=== PATIENT | female | born 1940 | race Caucasian/White ===

== ENCOUNTER 2016-06-24 21:17 | Emergency (ER) | payer OTHER ==
[2016-06-24 21:33] VITALS: BP 160/83; PULSE 76; TEMP 98.1; BMI 23.2
--- NOTE | 2016-06-24 21:35 | PDOC ---
History of Present Illness - General History Source: Patient Exam Limitations: No Limitations - History of Present Illness Initial Comments: 06/24/16 21:46 The patient is a 76 year old female with a significant past medical history of HTN, hypercholesterolemia who presents to the Emergency Department with a head injury tonight. She reports that she tripped and fell and hit her head. She denies LOC. She reports the fall was mechanical. She reports associated neck pain, but no headache. She denies chest pain, shortness of breath, dizziness. She denies fever, chills, nausea, vomiting, diarrhea, and constipation. PAST MEDICAL HISTORY: HTN, hypercholesterolemia PAST SURGICAL HISTORY: open heart surgery FAMILY HISTORY: no pertinent history SOCIAL HISTORY: Pt lives with family and is employed. MEDICATIONS: reviewed ALLERGIES: As per nursing notes Review of Systems: General: No fevers or chills, no weakness, no weight loss HEENT: No change in vision. No sore throat,. No ear pain CardioVascular: No chest pain or shortness of breath Respiratory: No cough, or wheezing. Gastrointestinal: no nausea, vomiting, diarrhea or constipation, No rectal bleeding Genitourinary: No dysuria, hematuria, or frequency Musculoskeletal: + neck pain. No joint or muscle pain or swelling Neurologic: + head injury. No headache, vertigo, dizziness or loss of consciousness Psychiatric: No depression Skin: No rashes or easy bruising Endocrine: No increased thirst or abnormal weight change Allergic: No skin or latex allergy All other systems reviewed and normal Physical Exam: GENERAL: The patient is awake, alert, and fully oriented, in no acute distress. HEAD: Contusion on left side of her head with associated small abrasion. No bleeding. No cervical spine tenderness. EYES: Pupils equal, round and reactive to light, extraocular movements intact, sclera anicteric, conjunctiva clear. EXTREMITIES: Normal range of motion, no edema. NEUROLOGICAL: Normal speech, normal gait. PSYCH: Normal mood, normal affect. SKIN: Warm, Dry, normal turgor, no rashes or lesions noted. <Dejah Cardenas - Last Filed: 06/24/16 21:46> - General History Source: Patient Exam Limitations: No Limitations - History of Present Illness Initial Comments: 06/24/16 22:24 A portion of this note was documented by scribe services under my direction. I have reviewed the details of the note, within reason, and agree with the documentation. The case summary and management plan written by me. Head CT no acute intracranial pathology, mild volume loss, chronic sinusitis ethmoid Assessment and plan: This is a 76-year-old female who had a mechanical trip and fall and hit her head. Patient's was complaining of some lateral neck pain but her cervical spine was nontender on palpation so she did not get a CAT scan of her neck. Patient did get his CAT scan of her head that was negative for any acute intercranial pathology but did show some chronic ethmoid sinusitis. Patient discharged home with her son who will stay with her tonight and check on her during the night. <Trudi Burciaga I - Last Filed: 06/24/16 22:27> - General Chief Complaint: Injury Stated Complaint: TRIPPED AND FELL HIT HEAD Time Seen by Provider: 06/24/16 21:23 Past History <Dejah Cardenas - Last Filed: 06/24/16 21:46> - Past Medical History HTN: Yes Hypercholesterolemia: Yes - Surgical History Cardiac Surgery: Yes (OPEN HEART) - Psycho/Social/Smoking Cessation Hx Anxiety: No Suicidal Ideation: No Smoking History: Never smoked Have you smoked in the past 12 months: No Information on smoking cessation initiated: No Hx Alcohol Use: No Drug/Substance Use Hx: No Substance Use Type: None <Trudi Burciaga I - Last Filed: 06/24/16 22:27> - Past Medical History Allergies/Adverse Reactions: Allergies Allergy/AdvReac Type Severity Reaction Status Date / Time No Known Allergies Allergy Unverified 06/24/16 21:19 Home Medications: Ambulatory Orders Amlodipine Besylate [Norvasc -] 5 mg PO DAILY 06/24/16 Aspirin [ASA -] 81 mg PO DAILY 06/24/16 Atorvastatin Ca [Lipitor] 40 mg PO HS 06/24/16 Lisinopril [Prinivil -] 40 mg PO DAILY 06/24/16 Metoprolol Succinate [Toprol Xl -] 50 mg PO DAILY 06/24/16 *Physical Exam - Vital Signs Last Vital Signs Temp Pulse Resp BP Pulse Ox 98.1 F 76 16 160/83 100 06/24/16 21:23 06/24/16 21:23 06/24/16 21:23 06/24/16 21:23 06/24/16 21:23 <Dejah Cardenas - Last Filed: 06/24/16 21:46> - Vital Signs Last Vital Signs Temp Pulse Resp BP Pulse Ox 98.1 F 76 16 160/83 100 06/24/16 21:23 06/24/16 21:23 06/24/16 21:23 06/24/16 21:23 06/24/16 21:23 <Trudi Burciaga I - Last Filed: 06/24/16 22:27> *DC/Admit/Observation/Transfer - Attestations Scribe Attestion: 06/24/16 21:46 Documentation prepared by Dejah Cardenas, acting as medical laboratory manager for Trudi Burciaga MD. <Dejah Cardenas - Last Filed: 06/24/16 21:46> - Discharge Dispostion Admit: No <Trudi Burciaga I - Last Filed: 06/24/16 22:27> Diagnosis at time of Disposition: Contusion of forehead Qualifiers: Encounter type: initial encounter Qualified Code(s): S00.83XA - Contusion of other part of head, initial encounter - Discharge Dispostion Disposition: HOME Condition at time of disposition: Stable - Patient Instructions Printed Discharge Instructions: Closed Head Injury Additional Instructions: Someone should check on you once tonight during the night. You should be arousable to your Normal level of arousability for that time of the night. If you have been vomiting, have had a seizure, or you are unable to be aroused or the person checking on you is concerned that there has been a change in your mental status they should call 911 and have you brought back to the emergency department. You can take Tylenol as needed for pain. Return to the emergency department immediately with ANY new, persistent or worsening symptoms. Continue any medications as previously prescribed by your physician. You should follow up with your primary doctor as soon as possible regarding today's emergency department visit. . Please make sure your doctor reviews the results of your emergency evaluation. Thank you for coming to the Emergency Department today for your care. It was a pleasure to see you today. Please note that your evaluation is INCOMPLETE until you follow-up with your doctor.
== END 2016-06-24 22:31 | disposition home or self-care (01) ==
LOC: FER 21:17
DX: S00.83XA Contusion of other part of head, initial encounter (principal); W18.39XA Other fall on same level, initial encounter; Y93.9 Activity, unspecified; Y92.9 Unspecified place or not applicable
CPT/HCPCS: 70450-TC; 99281-25